=== PATIENT | male | born 1995 | race Caucasian/White ===

== ENCOUNTER 2016-11-20 00:23 | Emergency (ER) | payer BC ==
[~2016-11-20 00:23] MED LIST: ADVAIR 250/28 DISKU1 IH; SINGULAIR10 MG PO
[2016-11-20] MEDS ORDERED: PROAIR HFA0.09 MG/AC IH ×2 (00:37→00:47)
== END 2016-11-20 01:01 | disposition home or self-care (01) ==
LOC: ED 00:23
DX: J45.901 Unspecified asthma with (acute) exacerbation (principal)